=== PATIENT | female | born 1985 | race Caucasian/White ===

== ENCOUNTER 2024-05-27 11:03 | Outpatient (CLI) | payer OTHER | END 2024-05-27 11:06 | disposition home or self-care (01) | LOC: SONOGRAMA 11:03 | PROVIDERS: ATTEND Pathology Anatomic Pathology | DX: D34 Benign neoplasm of thyroid gland (principal); E07.89 Other specified disorders of thyroid; E09.10 Drug or chemical induced diabetes mellitus with ketoacidosis without coma ==